=== PATIENT | male | born 1980 | race Caucasian/White ===

== ENCOUNTER 2024-03-31 07:40 | Outpatient (CLI) | payer OTHER, SELFPAY ==
--- NOTE | 2024-03-31 08:00 | MR_ITS ---
[address] [address] Phone:?[phone] Fax:?[phone] Referring Physician Information: Joe Mota [address] [facility] [address] Phone:?[phone] Fax:?[phone] Patient:Emir Alcaraz D.O.B:?1980 Sex:?Male Phone:?[phone] [facility] MRN:?[id number] Exam Date:?03/31/2024 EXAM: MRI of the RIGHT THUMB, without contrast CLINICAL INFORMATION: 43-year-old man with right thumb pain. PRIOR SURGERY: None reported. PLAIN FILMS: None available. COMPARISONS: No prior MRIs available. TECHNICAL INFORMATION: Using a 1.5 T MRI scanner and localizing surface coil: coronals: T1, PD, T2, STIR sagittals: PD, T2 axials: PD, T2, PDFS SEDATION: None CONTRAST: None FINDINGS: Osseous structures of the thumb are unremarkable, without stress/occult fractures, marrow edema or mass. Mild-moderate chondral thinning of the 1st CMC joint, with mild osteophytosis and reactive osseous changes (coronal STIR series 5 images 5-7). MCP joint ligaments: UCL: Mild-moderate attenuation and irregularity of the ulnar collateral ligament at its distal attachment, without full-thickness tear or evidence of a Stener lesion (coronal PD series 6 images 8-10). RCL: The radial collateral ligament of the thumb MCP joint is intact, without sprain or disruption. Flexor and extensor tendons are intact, without rupture, tendinopathy or tenosynovitis. IMPRESSION: 1. 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 2. Chronic sequela low-grade/incomplete UCL sprain, distally, without evidence of an acute/high-grade tear or Stener lesion. 3. No myotendinous abnormality. 4. No fracture or osseous stress reaction. BC Electronically signed on 03/31/2024 9:27:00 AM by Pepito Middleton M.D.
== END 2024-03-31 07:41 | disposition home or self-care (01) ==
PROVIDERS: PCP Physician Assistant Medical; Visit Provider Physician Assistant
DX: M79.644 Pain in right finger(s) (principal); M19.041 Primary osteoarthritis, right hand; S63.601A Unspecified sprain of right thumb, initial encounter; S69.91XA Unspecified injury of right wrist, hand and finger(s), initial encounter
CPT/HCPCS: 73218

== ENCOUNTER 2024-04-13 07:30 | Outpatient (RCR) | payer OTHER, BC, SELFPAY ==
--- NOTE | 2024-03-30 13:44 | OT.OPOE ---
OT Outpatient Ortho Eval OT Outpatient Ortho Eval* Start: 03/30/24 11:04 Freq: Status: Active Protocol: Document 03/30/24 11:04 MEHRAN (Rec: 03/30/24 12:58 MEHRAN [id number]) E-signed By Beth Parker, OTR/L, CLT OT OP Ortho Eval Details Complexity Complexity Low Insurance Information Insurance Information Workman's Comp Outpatient History/Precautions Current Condition/Medical Diagnosis Referring Provider Alexa Duffy PA-C Medical Diagnoses S63.601A - Unspecified sprain of right thumb, initial encounter Treatment Diagnosis Pain in Right Thumb, M79.644 Muscle Weakness, M62.81 Date of Onset 02/24/2024 Other Precautions He will wear a thumb spica brace at work. 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 The injury was with a fire hose which either pulled his thumb backwards or radially. He is not completely sure. Thumb had immediate pain. Some swelling. No numbness or tingling. Has been wearing a thumb spica brace. He has pain over the thumb MP joint. He has pain when he lifts up a full cup of coffee. Pain Assessment Pain Pain Yes Pain Comments 4/10 with activity (use of the R hand) Range of Motion and Strength Hand/Finger/Thumb Range of Motion and Strength Hand/Finger/Thumb Range of Motion and R thumb IP 55 degrees active ( Strength then becomes painful) L ( nonaffected side) measured at 82 degrees R thumb MP AROM was 60 degrees with L (nonaffected side) measuring at 65 degrees FULL Abduction and Adduction but slight discomfort at end range and more discomfort with a prolonged hold Hand Pinch/Vest Baster Strength Hand Pinch/Vest Baster Strength Hand Pinch/Vest Baster Strength Left Hand,Right Hand Left Hand Vest Baster Strength Position 1 in Elbow 110 Flexion (lbs) Vest Baster Strength Position 2 in Elbow 110 Extension (lbs) Lateral Pinch Strength (lbs) 23 Three Point Pinch (lbs) 16 Tip Pinch Strength (lbs) 16 Right Hand Vest Baster Strength Position 1 in Elbow 90 Flexion (lbs) Vest Baster Strength Position 2 in Elbow 90 Extension (lbs) Lateral Pinch Strength (lbs) 16 Three Point Pinch (lbs) 7 Tip Pinch Strength (lbs) 7 Comments Comments R hand dominant, food adviser/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 Tenderness to palpation of the CMC joint. Nontender over the anatomic snuffbox. He is able to range his wrist normally without pain. He states some stiffness in the wrist due to wearing the brace however. CMC intact right upper extremity. No contour deformity. Nontender over the thumb MP joint. Minimal discomfort with stressing the ulnar side of the MP joint of the thumb. Nontender over the thumb metacarpal. Nontender over the proximal thumb phalanx or distal phalanx. Nontender over the IP joint of the thumb. Additional Information Objective Additional Information Final Imaging Read Copied from Chart: Diagnosis: Follow-up right thumb injury PA, Lateral, Navicular and Oblique views of the right thumb were obtained on 2023 from [facility]. These show no obvious fracture of the thumb. There is some early thumb CMC joint osteoarthritis with some early joint space narrowing and dorsal subluxation of the base of the thumb metacarpal. No obvious acute injury. OT Problems Problems Problems Decreased Strength,Decreased Range of Motion,Pain,Lifting, Gripping,Pinching Other Problems Writing,Opening Containers, Dressing Patient Potential Excellent Assessment Assessment Assessment 43 year old male (this is a workman's comp case) with medical dx of: S63.601A - Unspecified sprain of right thumb, initial encounter. The injury was with a fire hose which either pulled his thumb backwards or radially. He is not completely sure. Thumb had immediate pain. Some swelling. No numbness or tingling. Has been wearing a thumb spica brace. He has pain over the thumb MP joint. He has pain when he lifts up a full cup of coffee. PLAN: treat pain symptoms with the use of modalities as indicated , manual therapy for progressing AROM, development of an individualized HEP, patient education on the progression of treatment and activity modifications while healing. Patient is anticipated to achieve all goals written in this POC. Occupational Therapy Treatment Plan - OP Potential Rehabilitation Potential Excellent Barriers Barriers to goal attainment None noted Set Goals Goals Set with Patient Yes Goals Goals 1. Patient will advance his R thumb AROM (On EVAL 03/30/24L R thumb IP 55 degrees active ( then becomes painful) L ( nonaffected side) measured at 82 degrees) in order to return to all work related tasks and household activities. 2. Patient will be able to use a shovel in his R (dominant) hand w/o pain/discomfort >2/10 . 3. 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 4. Patient will increase R hand lateral pinch (thumb) from 16 lbs to >18 lbs in order to return to using tools with his dominant R hand again. Target Date 10 weeks Treatment Plan Treatment Plan Evaluation,Edema Control,Joint Mobilization,Manual Therapy, Ultrasound,Therapeutic Exercise,Self Care/Home Management,Education Expected Frequency 1-2x Week Expected Duration 8-10 Weeks Home Program Home Program Home Program Initiated Home Program Specifics AROM of the thumb and wrist in all planes/AROM for 5 reps every 1-2 hours during the day Certification Certification Statement I Certify That: Therapy Services Provided, Therapy Plan Established, Therapy Plan Reviewed Certification Information Clinic ID # [id number] Initial Certification Date 03/30/24 Recertification Due Date 06/28/24 Provider Signature Required Yes Provider Signature Shows Agreement With POC & Medical Necessity Physician NPI Number Write NPI# Here Physician Comment/Change Comment or Changes Physician Signature & Date Requested Please Sign/Date Here
== END 2024-04-13 09:31 | disposition home or self-care (01) ==
PROVIDERS: PCP Physician Assistant Medical; Visit Provider Physician Assistant
DX: S63.601A Unspecified sprain of right thumb, initial encounter (principal); M79.644 Pain in right finger(s); M62.81 Muscle weakness (generalized); Z02.6 Encounter for examination for insurance purposes; Z51.89 Encounter for other specified aftercare
CPT/HCPCS: 97110; 97165; X5282